=== PATIENT | male | born 1970 | race Caucasian/White ===

== ENCOUNTER 2017-10-20 00:09 | Emergency (ER) | payer SELFPAY ==
[~2017-10-20] VITALS: Ht 177.8 cm; Wt 113.6 kg
[2017-10-20 00:10] VITALS: BP 130/70
[2017-10-20] MEDS ORDERED: normal saline 1000ML IV soln IVB ONE (00:55)
[2017-10-20] MEDS ORDERED: propofol 10mg/ml 20ml vial IV ONE (00:55)
== END 2017-10-20 02:15 | disposition left against medical advice (07) ==
LOC: ER 00:10
DX: S43.005A Unspecified dislocation of left shoulder joint, initial encounter (principal); S05.11XA Contusion of eyeball and orbital tissues, right eye, initial encounter; F10.129 Alcohol abuse with intoxication, unspecified; F12.10 Cannabis abuse, uncomplicated; Y08.89XA Assault by other specified means, initial encounter; Y93.89 Activity, other specified; Y92.89 Other specified places as the place of occurrence of the external cause; Y99.8 Other external cause status; Y90.9 Presence of alcohol in blood, level not specified
CPT/HCPCS: 23650; 73030; 99284; J7030; J2704